=== PATIENT | female | born 1990 | race Hispanic/Latino ===

== ENCOUNTER 2022-02-08 08:07 | Emergency (ER) | payer MEDICAID ==
[~2022-02-08] VITALS: Ht 147.3 cm; Wt 40.8 kg
[2022-02-08 08:12] VITALS: BP 100/67
[2022-02-08] MEDS ORDERED: LIDOCAINE HCL 1% 20 ML VIAL INJ SCH (08:20)
[2022-02-08] MEDS ORDERED: ACET-66 PO (08:48)
[2022-02-08] MEDS ORDERED: CEPH500B PO (08:48)
[2022-02-14] MEDS ORDERED: CEPH500B PO (16:20)
== END 2022-02-08 08:57 | disposition home or self-care (01) ==
LOC: EDH 08:07
DX: N76.4 Abscess of vulva (principal)
CPT/HCPCS: 56405

== ENCOUNTER 2022-02-11 10:42 | Emergency (ER) | payer MEDICAID ==
[~2022-02-11] VITALS: Ht 147.3 cm; Wt 40.8 kg
[~2022-02-11 10:42] MED LIST: ACET-66 PO; CEPH500B PO
[2022-02-11 10:54] VITALS: BP 110/52
[2022-02-14] MEDS ORDERED: CEPH500B PO (16:20)
== END 2022-02-11 11:15 | disposition home or self-care (01) ==
LOC: EDH 10:42
DX: Z48.00 Encounter for change or removal of nonsurgical wound dressing (principal)
CPT/HCPCS: 99281

== ENCOUNTER 2022-03-08 15:40 | Emergency (ER) | payer MEDICAID ==
[~2022-03-08] VITALS: Ht 147.3 cm; Wt 43.5 kg
[2022-03-08 15:41] VITALS: BP 126/84
[2022-03-08] MEDS ORDERED: LIDOCAINE HCL 1% 10 ML VIAL ONE (16:56)
[2022-03-08] MEDS ORDERED: CEPH500B PO (17:44)
[2022-03-08] MEDS ORDERED: FLUC150T PO (17:46)
== END 2022-03-08 17:52 | disposition home or self-care (01) ==
LOC: EDH 15:40
DX: N76.4 Abscess of vulva (principal); Z98.890 Other specified postprocedural states; Z79.899 Other long term (current) drug therapy
CPT/HCPCS: 99284; 56405; 82948; J3490